=== PATIENT | male | born 1990 | race Caucasian/White ===

== ENCOUNTER 2018-08-11 18:21 | Emergency (ER) | payer MEDICAID ==
[2018-08-11] MEDS ORDERED: KETOROLAC 30 MG/ML VIAL IM ONE (18:35)
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
== END 2018-08-11 19:14 | disposition home or self-care (01) ==
LOC: ER 18:21
DX: K08.89 Other specified disorders of teeth and supporting structures (principal); F17.210 Nicotine dependence, cigarettes, uncomplicated
CPT/HCPCS: 99283 ×2; 96372; J1885